=== PATIENT | male | born 1945 | race Caucasian/White ===

== ENCOUNTER 2023-10-18 13:18 | Day surgery (SDC) | payer MEDICARE, BC, SELFPAY ==
--- NOTE | 2023-10-18 | PATH_ITS ---
[facility] Accession Number: [id number] No. of containers..02 Tissue . 01 Material submitted: . PART A: gastrointestinal site - GASTRIC POLYP PART B: sigmoid colon - SIGMOID POLYP . 01 Diagnosis: A. GASTRIC POLYP: Fundic gland polyp. No evidence of Helicobacter organisms on H/E stain. Negative for intestinal metaplasia. Negative for dysplasia and malignancy. . B. SIGMOID COLON POLYP: Vegetable material. No colonic tissue identified. [facility] 10/20/2023 1118 Local . 01 Electronically signed: . Jd Henderson MD, PhD, Pathologist NPI- [id number] . 01 Gross description: . A. Received in formalin with two patient identifiers and gastric polyp, is a single acosta soft tissue fragment, 0.3 cm in greatest dimension. Submitted in A1. B. Received in formalin with two patient identifiers and sigmoid polyp, are multiple acosta to brown soft tissue fragments aggregating to 0.2 x 0.1 x 0.1 cm. Filtered and submitted in B1. ([id number]) /MRV 10/19/2023 1602 Local . 01 Pathologist provided ICD-10: K31.7, K63.5 . 01 CPT . 648016, [id number] Specimen Comment: A courtesy copy of this report has been sent to [phone] Performed at: [address] [id number] MD Ray Lloyd MD Phone: [phone]
[2023-10-18 13:37] VITALS: BP 140/82; PULSE 76; RESP 16; TEMP 36.3; O2SAT 100
[2023-10-18] MEDS: LACTATED RINGERS 1,000 ML 42 ML IV (13:43)
--- NOTE | 2023-10-18 13:49 | PM.OP.EC ---
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 The video upper scope was placed into the oropharynx and with the patient's help swalloded into the esophagus. The esophagus stomach and duodenum were carefully examined. On withdrawal, retroflexed view the GE junction was performed. The scope was removed. The patient tolerated procedure well. Patient was then turned to the colonoscope substituted. This introduced the rectum slowly passed the cecum. On slow withdrawal mucosa was carefully examined. The scope was removed. The patient tolerated procedure well. Blood loss none Complications none Sedation mac Findings EGD 1. Completely normal esophagus to the squamocolumnar junction at 37-38 cm. The Z-line was completely regular and well outlined. No biopsies were taken 2. Very large hiatal hernia measuring 8-9 cm with a diaphragmatic hiatus at 46 cm no Ari lesions were seen. 3. Normal stomach except for a 1 cm polyp in the upper body. This was biopsied. 4. Normal duodenal bulb and sweep Colonoscopy 1. 5 mm polyp in the sigmoid colon. This was cold snared and removed completely 2. Otherwise negative colonoscopy to cecum Mr. Jones does not need any further upper tract screening as he has no evidence of Uribe's at this time. We will merely await biopsies from his colonic polyp and decide whether to stop screening altogether or pursue a virtual colonoscopy if the histology on the polyp is more advanced
--- NOTE | 2023-10-18 13:52 | PM.PREOP ---
Pre-operative Note COVID-19 COVID-19 status: Negative Interval Note History & Physical reviewed/Exam performed by Physician: Yes Changes to H&P: No ASA Class (for procedural sedation): II
[2023-10-18 14:19] VITALS: BP 100/69; PULSE 78; RESP 14; TEMP 36.1; O2SAT 95
[2023-10-18 14:24] VITALS: BP 99/68; PULSE 71; RESP 13; TEMP 36.1; O2SAT 97
[2023-10-18 14:30] VITALS: BP 100/71; PULSE 72; RESP 20; TEMP 36.2; O2SAT 95
[2023-10-18 14:38] VITALS: BP 105/69; PULSE 70; RESP 15; TEMP 36.2; O2SAT 97
== END 2023-10-18 14:44 | disposition home or self-care (01) ==
PROVIDERS: Referring Provider Internal Medicine Gastroenterology; Visit Provider Internal Medicine Gastroenterology
PROC: 0DJ08ZZ Inspection of Upper Intestinal Tract, Via Natural or Artificial Opening Endoscopic (ICD-10-PCS; CPT 43235; principal; 2023-10-18 14:30)
PROC: 0DJD8ZZ Inspection of Lower Intestinal Tract, Via Natural or Artificial Opening Endoscopic (ICD-10-PCS; CPT 45378; 2023-10-18 14:30)
DX: Z12.11 Encounter for screening for malignant neoplasm of colon (principal); Z86.010 Personal history of colon polyps; Z80.0 Family history of malignant neoplasm of digestive organs; K44.9 Diaphragmatic hernia without obstruction or gangrene; K31.7 Polyp of stomach and duodenum; Z87.19 Personal history of other diseases of the digestive system
CPT/HCPCS: 45385; 43239; J2704